=== PATIENT | female | born 1990 | race African-American/Black ===

== ENCOUNTER 2017-03-14 07:53 | Inpatient (IN) | payer OTHER ==
[2017-03-12 08:48] LABS: BASOPHILS # (AUTO) 0.03 x10^3/uL (0-0.1); BASOPHILS % (AUTO) 1 % (0-1); EOSINOPHILS # (AUTO) 0.13 x10^3/uL (0-0.4); EOSINOPHILS % (AUTO) 2 % (1-7); LYMPHOCYTES # (AUTO) 2.18 x10^3/uL (1-3.4); LYMPHOCYTES % (AUTO) 34 % (22-44); MD NO; MEAN CORPUSCULAR HEMOGLOBIN 28.3 pg (27.0-34.8); MEAN CORPUSCULAR HGB CONC 33.7 g/dL (32.4-35.8); MEAN CORPUSCULAR VOLUME 84.2 fL (80-100); MEAN PLATELET VOLUME 8.3 fL (7.4-10.4); MONOCYTES # (AUTO) 0.45 x10^3/uL (0.2-0.8); MONOCYTES % (AUTO) 7 % (2-9); NEUTROPHILS # (AUTO) 3.64 x10^3/uL (1.8-6.8); NEUTROPHILS % (AUTO) 57 % (42-75); PLATELET COUNT 483 x10^3/uL (130-400); RED BLOOD COUNT 4.83 x10^6/uL (3.82-5.3); RED CELL DISTRIBUTION WIDTH 12.6 % (9.6-15.2)
[2017-03-12 09:01] LABS: ALBUMIN 3.4 g/dL (3.4-5.0); ANION GAP 5 mmol/L (5-15); CALCIUM 9.1 mg/dL (8.5-10.1); CHLORIDE 109 mmol/L (98-107); CHOLESTEROL, TOTAL 151 mg/dL (140-239); CREATININE 0.78 mg/dL (0.55-1.02)
[2017-03-12 09:28] LABS: % IRON SATURATION 18 % (20-55); ALANINE AMINOTRANSFERASE 688 U/L (12-78); ALKALINE PHOSPHATASE 65 U/L (45-117); BILIRUBIN,TOTAL 0.3 mg/dL (0.2-1.0); CHOL/HDL RATIO 2.2; HDL CHOL % 46 % (28-40); HDL CHOLESTEROL (DIRECT) 69 mg/dL (40-60); IRON LEVEL 70 mcg/dL (50-170); LDL CHOLESTEROL,CALCULATED 67 mg/dL (54-169); PREALBUMIN 19.9 mg/dL (20.0-40.0); TOTAL IRON BINDING CAPACITY 391 mcg/dL (250-450); TOTAL PROTEIN 8.9 g/dL (6.4-8.2); TRANSFERRIN 243 mg/dL (200-360); TRIGLYCERIDES 77 mg/dL (50-200); VLDL CHOLESTEROL 15 mg/dL (0-25)
[2017-03-12 09:29] LABS: FOLATE LEVEL > 20.0 ng/mL (3.1-17.5)
[~2017-03-14] VITALS: Ht 160 cm; Wt 122.8 kg
[~2017-03-14 07:53] MED LIST: BIOT1TAB2 PO; BUPIVACAINE/PF 0.5% ONE; MULT80TA PO; NORG1TAB6 PO; PANT20TA3 PO
[2017-03-14] MEDS ORDERED: LACTATED RINGERS 1,000 ML IV SCH (13:31)
[2017-03-14 13:36] VITALS: BP 140/92
[2017-03-14 14:00] LABS: HCG UR SG 1.023 (1.003-1.030)
[2017-03-14] MEDS ORDERED: LIDOCAINE 1%, 2ML ONE (14:01)
[2017-03-14] MEDS ORDERED: MIDAZOLAM 1 MG/ML, 2ML ONE (14:02)
[2017-03-14] MEDS ORDERED: FENTANYL PF 100 MCG/2ML ONE ×4 (14:02→15:25)
[2017-03-14] MEDS ORDERED: PROPOFOL 10 MG/ML, 20ML ONE (14:04)
[2017-03-14] MEDS ORDERED: ROCURONIUM 10 MG/ML,10ML ONE (14:04)
[2017-03-14] MEDS ORDERED: GLYCOPYRROLATE 0.2MG/1ML, 5ML ONE (14:05)
[2017-03-14] MEDS ORDERED: NEOSTIGMINE 1 MG/ML, 10ML ONE (14:05)
[2017-03-14] MEDS ORDERED: ONDANSETRON 2MG/ML, 2ML ONE (14:06)
[2017-03-14] MEDS ORDERED: CEFAZOLIN 1,000 MG ONE ×2 (14:06)
[2017-03-14] MEDS ORDERED: DEXAMETHASONE 4 MG/ML, 1ML ONE ×2 (14:06)
[2017-03-14] MEDS ORDERED: SODIUM CHLORIDE 0.9% PF 10ML ONE (14:06)
[2017-03-14] MEDS ORDERED: LIDOCAINE 1%, 2ML SQ PRN (14:30)
[2017-03-14] MEDS ORDERED: OXYcodone 5 MG/5 ML ORAL.SOL UDC PO PRN (15:00)
[2017-03-14] MEDS ORDERED: ONDANSETRON 2MG/ML, 2ML IVPush PRN ×2 (15:00→16:00)
[2017-03-14] MEDS ORDERED: FENTANYL PF 100 MCG/2ML IV PRN (15:00)
[2017-03-14] MEDS ORDERED: LABETALOL 5MG/ML, 20ML IV PRN (15:00)
[2017-03-14] MEDS ORDERED: hydrALAzine 20 MG/ML, 1ML IV PRN (15:00)
[2017-03-14] MEDS ORDERED: PROMETHAZINE 25 MG/ML, 1ML IV PRN (15:00)
[2017-03-14] MEDS ORDERED: ACETAMINOPHEN 325 MG TABLET PO PRN (15:00)
[2017-03-14] MEDS ORDERED: morphine SULFATE 10 MG/ML, 1ML IVPush PRN (16:00)
[2017-03-14] MEDS ORDERED: ENALAPRILAT 1.25 MG/ML, 2ML IV PRN (16:00)
[2017-03-14] MEDS ORDERED: hydrALAzine 20 MG/ML, 1ML IVPush PRN (16:00)
[2017-03-14] MEDS ORDERED: PROMETHAZINE 25 MG/ML, 1ML IM PRN (16:00)
[2017-03-14] MEDS ORDERED: LORazepam 2 MG/ML, 1ML IV PRN (16:00)
[2017-03-14] MEDS ORDERED: DIPHENHYDRAMINE 50 MG/ML, 1ML IV PRN (16:00)
[2017-03-14] MEDS ORDERED: PROMETHAZINE 12.5 MG SUPP PR PRN (16:00)
[2017-03-14] MEDS ORDERED: PHENOL THROAT SPRAY BOTTLE MM PRN (16:00)
[2017-03-14] MEDS ORDERED: MEPERIDINE/PF 50 MG/ML ONE (16:39)
[2017-03-14] MEDS: MEPERIDINE/PF 25MG/0.5ML IVPush PRN ×2 (16:40→17:00)
[2017-03-14] MEDS ORDERED: HYDROmorphone 2 MG/ML, 1ML ONE (17:22)
[2017-03-14] MEDS: HYDROmorphone 1 MG/ML, 1ML IV PRN ×2 (17:25→17:31)
[2017-03-14 18:20] VITALS: BP 159/108
[2017-03-14 20:10] VITALS: BP 156/97
[2017-03-14 20:30] VITALS: BP 142/97
[2017-03-14] MEDS: FAMOTIDINE 20 MG/2 ML IVPush SCH (21:12)
[2017-03-14] MEDS: LACTATED RINGERS 1,000 ML IV SCH (21:12)
[2017-03-15 02:15] VITALS: BP 145/87
[2017-03-15 03:35] VITALS: BP 146/90
[2017-03-15] MEDS: LACTATED RINGERS 1,000 ML IV SCH (03:55)
[2017-03-15] MEDS ORDERED: LACTATED RINGERS 1,000 ML IV SCH (04:49)
[2017-03-15 05:43] LABS: BASOPHILS # (AUTO) 0.03 x10^3/uL (0-0.1); BASOPHILS % (AUTO) 0 % (0-1); EOSINOPHILS % (AUTO) 0 % (1-7); LYMPHOCYTES % (AUTO) 10 % (22-44); MD NO; MEAN CORPUSCULAR HEMOGLOBIN 29.1 pg (27.0-34.8); MEAN CORPUSCULAR HGB CONC 34.4 g/dL (32.4-35.8); MEAN CORPUSCULAR VOLUME 84.6 fL (80-100); MEAN PLATELET VOLUME 9.3 fL (7.4-10.4); MONOCYTES # (AUTO) 0.31 x10^3/uL (0.2-0.8); MONOCYTES % (AUTO) 3 % (2-9); NEUTROPHILS # (AUTO) 8.82 x10^3/uL (1.8-6.8); NEUTROPHILS % (AUTO) 87 % (42-75); PLATELET COUNT 454 x10^3/uL (130-400); RED BLOOD COUNT 4.54 x10^6/uL (3.82-5.3)
[2017-03-15 05:49] LABS: ALBUMIN 3.3 g/dL (3.4-5.0); ANION GAP 10 mmol/L (5-15); CALCIUM 8.8 mg/dL (8.5-10.1); CHLORIDE 100 mmol/L (98-107)
[2017-03-15 05:50] LABS: CREATININE 0.64 mg/dL (0.55-1.02)
[2017-03-15 07:30] VITALS: BP 167/98
[2017-03-15] MEDS: FAMOTIDINE 20 MG/2 ML IVPush SCH (08:03)
[2017-03-15] MEDS: HYDROcodone/APAP 7.5-325MG/15ML UDC PO PRN ×3 (08:05→15:02)
[2017-03-15 13:21] VITALS: BP 153/94
== END 2017-03-15 16:19 | disposition home or self-care (01) | DRG 620 ==
LOC: ORIP 13:07 → 4NOR 18:00 → DCLOUNGE 03-15 16:09
PROVIDERS: ADMIT Thoracic Surgery (Cardiothoracic Vascular Surgery); ATTEND Thoracic Surgery (Cardiothoracic Vascular Surgery)
PROC: 0DB64Z3 Excision of Stomach, Percutaneous Endoscopic Approach, Vertical (ICD-10-PCS; principal; 2017-03-14 16:00)
DX: E66.01 Morbid (severe) obesity due to excess calories (principal); E87.1 Hypo-osmolality and hyponatremia; K21.9 Gastro-esophageal reflux disease without esophagitis; Z68.42 Body mass index [BMI] 45.0-49.9, adult; M25.50 Pain in unspecified joint
CPT/HCPCS: 36415; 71020; 80048; 80053; 80061; 81025; 82040; 82306; 82607; 82728; 82746; 83540; 83550; 83970; 84134; 84425; 84466; 85025; 93005; J0690; J1100; J1170; J2175; J2250; J2405; J2704; J2710; J3010; J3490; J0360; J7120; S0028